=== PATIENT | male | born 1985 | race African-American/Black ===

== ENCOUNTER 2023-11-28 03:03 | Emergency (ER) | payer BC ==
[~2023-11-28] VITALS: Ht 182.9 cm; Wt 88.0 kg
[2023-11-28 03:10] VITALS: TEMP 98.2; O2SAT 99
[2023-11-28] MEDS: IBUPROFEN 600MG TABLET PO ONE (03:49)
[2023-11-28] MEDS: ACETAMINOPHEN 325MG TABLET PO ONE (03:49)
[2023-11-28] MEDS: BACITRACIN ZINC OINT UDPKT TOP ONE (03:51)
[2023-11-28] MEDS: TETANUS, DIPHTHERIA, PERTUSSIS VAC/PF 0.5ML (>10YR OLD) IM ONE (03:52)
[2023-11-28] MEDS: LIDOCAINE HCL/EPINEPHRINE 1%-EPI 1:100,000 20 ML VIAL INFIL ONE (04:17)
[2023-11-28] MEDS ORDERED: IBUP-2028 MT (05:57)
[2023-11-28 06:34] VITALS: BP 133/97; PULSE 82; RESP 16
== END 2023-11-28 06:35 | disposition home or self-care (01) ==
LOC: ER 03:03
DX: S01.111A Laceration without foreign body of right eyelid and periocular area, initial encounter (principal); F12.90 Cannabis use, unspecified, uncomplicated; R51.9 Headache, unspecified; V98.8XXA Other specified transport accidents, initial encounter; Y93.89 Activity, other specified; Y92.89 Other specified places as the place of occurrence of the external cause; Y99.8 Other external cause status
CPT/HCPCS: 73502; 73552; 73110; 73130; 70450; 72125; 90715; 12014; 90471; 99285; J3490; Z7610 ×3

== ENCOUNTER 2023-12-05 13:38 | Emergency (ER) | payer BC, OTHER ==
[~2023-12-05] VITALS: Ht 182.9 cm; Wt 82.0 kg
[~2023-12-05 13:38] MED LIST: IBUP-2028 MT
[2023-12-05 13:54] VITALS: BP_SYST 76; PULSE 79; RESP 18; TEMP 98.9; O2SAT 99
[2023-12-05] MEDS ORDERED: BO1 TP (15:21)
[2023-12-05] MEDS: BACITRACIN ZINC OINT UDPKT TOP ONE (15:37)
== END 2023-12-05 15:39 | disposition home or self-care (01) ==
LOC: ER 13:38
DX: S01.01XD Laceration without foreign body of scalp, subsequent encounter (principal); F12.90 Cannabis use, unspecified, uncomplicated; X58.XXXD Exposure to other specified factors, subsequent encounter
CPT/HCPCS: 99282; Z7610 ×2